=== PATIENT | female | born 1995 | race Two or more races ===

== ENCOUNTER 2021-04-22 08:30 | Inpatient (IN) | payer OTHER ==
[~2021-04-22] VITALS: Ht 154.9 cm; Wt 2.7 kg
[~2021-04-22 08:30] MED LIST: PRENATAL PO
[2021-04-24] MEDS ORDERED: PRENATAL + DHA1 EAC1 PO (11:15)
== END 2021-04-27 13:32 | disposition home or self-care (01) | DRG 788 ==
LOC: OB/GYN 04-24 06:05 → O/R 04-24 06:05 → OB/GYN 04-24 10:15
PROVIDERS: ADMIT Obstetrics & Gynecology; ATTEND Obstetrics & Gynecology
PROC: 10D00Z1 Extraction of Products of Conception, Low, Open Approach (ICD-10-PCS; principal; 2021-04-24 10:15)
PROC: 4A1HXCZ Monitoring of Products of Conception, Cardiac Rate, External Approach (ICD-10-PCS; 2021-04-24 10:15)
DX: O34.211 Maternal care for low transverse scar from previous cesarean delivery (principal); Z3A.39 39 weeks gestation of pregnancy; Z37.0 Single live birth; Z20.822 Contact with and (suspected) exposure to COVID-19

== ENCOUNTER 2021-05-15 19:10 | Emergency (ER) | payer OTHER ==
[~2021-05-15] VITALS: Ht 154.9 cm; Wt 60.8 kg
[~2021-05-15 19:10] MED LIST changes: +PRENATAL + DHA1 EAC1 PO
[2021-05-15] MEDS ORDERED: MACRODANTIN100 M1 PO (20:32)
== END 2021-05-15 20:54 | disposition home or self-care (01) ==
LOC: ER 19:10
DX: N39.0 Urinary tract infection, site not specified (principal)

== ENCOUNTER 2021-08-04 02:18 | Emergency (ER) | payer OTHER ==
[~2021-08-04] VITALS: Ht 154.9 cm; Wt 60.8 kg
[~2021-08-04 02:18] MED LIST changes: +MACRODANTIN100 M1 PO
== END 2021-08-04 10:32 | disposition home or self-care (01) ==
LOC: ER 02:18
DX: K80.20 Calculus of gallbladder without cholecystitis without obstruction (principal); R10.11 Right upper quadrant pain

== ENCOUNTER 2021-08-23 06:16 | Day surgery (SDC) | payer OTHER ==
[~2021-08-23] VITALS: Ht 154.9 cm; Wt 59.0 kg
[~2021-08-23 06:16] MED LIST changes: +TOPROL XL25 M1 PO
[2021-08-23] MEDS ORDERED: CEFADROXIL500 MG PO (09:31)
[2021-08-23] MEDS ORDERED: NAPR500T14 PO (09:32)
== END 2021-08-23 15:44 | disposition home or self-care (01) ==
LOC: CIR.AMB 06:16
PROVIDERS: ATTEND Surgery
DX: K80.10 Calculus of gallbladder with chronic cholecystitis without obstruction (principal); Z20.822 Contact with and (suspected) exposure to COVID-19

== ENCOUNTER 2022-06-08 21:42 | Emergency (ER) | payer OTHER ==
[~2022-06-08] VITALS: Ht 154.9 cm; Wt 61.2 kg
[~2022-06-08 21:42] MED LIST changes: +CEFADROXIL500 MG PO; +NAPR500T14 PO
[2022-06-09] MEDS ORDERED: PROTONIX40 MG PO (05:48)
[2022-06-09] MEDS ORDERED: ONDANSETRON ODT4 MG PO (05:48)
[2022-06-09] MEDS ORDERED: PEPCID40 MG PO (05:48)
[2022-06-09] MEDS ORDERED: LEVSIN/SL0.125 MG SL (05:48)
== END 2022-06-09 05:58 ==
LOC: ER 21:42
DX: K52.89 Other specified noninfective gastroenteritis and colitis (principal); R10.9 Unspecified abdominal pain; R11.10 Vomiting, unspecified; A08.8 Other specified intestinal infections

== ENCOUNTER → 2025-02-05 | Emergency (ER) | payer OTHER ==
[~2025-02-05] MED LIST changes: +LEVSIN/SL0.125 MG SL; +ONDANSETRON ODT4 MG PO; +PEPCID40 MG PO; +PROTONIX40 MG PO
== END | disposition left against medical advice (07) ==
LOC: ER 17:33
DX: Z53.21 Procedure and treatment not carried out due to patient leaving prior to being seen by health care provider (principal)